=== PATIENT | male | born 1995 | race African-American/Black ===

== ENCOUNTER 2023-02-24 12:28 | Emergency (ER) | payer OTHER ==
[~2023-02-24] VITALS: Ht 180.3 cm; Wt 88.6 kg
[2023-02-24] MEDS ORDERED: CYCL-707 PO (12:57)
[2023-02-24] MEDS ORDERED: KETOROLAC 60MG 2ML VIAL IM ONE (17:45)
[2023-02-24] MEDS ORDERED: KETO10TAB PO (19:51)
[2023-02-24 19:58] VITALS: BP 143/85; TEMP 96.9; O2SAT 99
== END 2023-02-24 20:00 | disposition home or self-care (01) ==
LOC: M ED 12:28
DX: M54.50 Low back pain, unspecified (principal); R20.0 Anesthesia of skin; Z88.1 Allergy status to other antibiotic agents; Z79.899 Other long term (current) drug therapy
CPT/HCPCS: 72128; 72131; 96372; 99283; J1885